=== PATIENT | male | born 1950 | race Caucasian/White ===

== ENCOUNTER → 2019-10-24 | Outpatient (REF) | payer MEDICARE, BC, OTHER ==
[~2019-10-24] MED LIST: ASPI81TA86 PO; GABA-845 PO; LOSA50TA88 PO; MULTCAP PO; SIMV20TA22 PO
[2019-10-24 19:20] LABS: APPEARANCE, URINE HAZY (CLEAR); BACTERIA, URINE AUTO NEGATIVE (NEGATIVE); BILIRUBIN, URINE AUTO NEGATIVE (NEGATIVE); BLOOD, URINE BLOOD NEGATIVE (NEGATIVE); COLOR, URINE AMBER (YELLOW); GLUCOSE, URINE (UA) AUTO NEGATIVE (NEGATIVE); KETONE, URINE AUTO TRACE mg/dL (NEGATIVE); LEUKOCYTE ESTERASE, URINE AUTO NEGATIVE (NEGATIVE); MUCUS, URINE MODERATE (NEGATIVE); NITRITE, URINE AUTO NEGATIVE (NEGATIVE); PROTEIN, URINE AUTO NEGATIVE (NEGATIVE); RBC, URINE AUTO 3 /HPF (0-3); SPECIFIC GRAVITY URINE AUTO 1.026 (1.002-1.035); SQUAMOUS EPITHELIAL CELL UR AU 0 /HPF (0-6); UROBILINOGEN, URINE AUTO 0.2 mg/dL (0.0-2.0); WBC, URINE AUTO 4 /HPF (0-3)
== END ==
LOC: M SMT 16:49
PROVIDERS: ATTEND Nurse Practitioner Family
DX: N15.9 Renal tubulo-interstitial disease, unspecified (principal)
CPT/HCPCS: 81001; 87086; G0463

== ENCOUNTER 2019-11-10 07:45 | Day surgery (SDC) | payer MEDICARE, BC, OTHER ==
[~2019-11-10] VITALS: Ht 162.6 cm; Wt 106.6 kg
[2019-11-10] MEDS ORDERED: ceFAZolin 2 GM/D5W 50 ML IV BAG (J0690 PER 500MG) As Ordered ONE (08:01)
[2019-11-10] MEDS ORDERED: ceFAZolin 2 GM/D5W 50 ML IV BAG (J0690 PER 500MG) ONE (08:01)
[2019-11-10] MEDS ORDERED: LIDOCAINE 2% 100MG/5ML SDV (FOR ANES.) As Ordered ONE (08:57)
[2019-11-10] MEDS ORDERED: propofoL 200 MG/20 ML VIAL As Ordered ONE (08:58)
[2019-11-10] MEDS ORDERED: PERCOCET 5MG/325MG TAB As Ordered ONE (09:49)
[2019-11-10] MEDS ORDERED: PERCOCET 5MG/325MG TAB ONE (09:49)
--- NOTE | 2020-01-19 12:37 | RO ---
Date of Operation: 11/10/2019 PREOPERATIVE DIAGNOSIS: Right kidney stones. POSTOPERATIVE DIAGNOSIS: Right kidney stones. PROCEDURE: Right extracorporal shockwave lithotripsy. SURGEON: Axel Courtney MD. PRIVACY COMPLIANCE MANAGER: None. ANESTHESIA: MAC. OPERATIVE INDICATIONS: This is a 69-year-old male found to have right-sided nonobstructing kidney stones measuring up to 6 mm in size. He was brought to the operating room today for treatment. DESCRIPTION OF PROCEDURE: The patient was brought to the operating room and MAC anesthesia was administered. Prophylactic antibiotics were infused. Fluoroscopy was utilized to monitor. The patient was then placed in the supine position for a right-sided extracorporal shockwave lithotripsy. Fluoroscopy was utilized to monitor stone position and fragmentation throughout the procedure. Two stones were seen in the lower pole of the kidney with one measuring around 6 mm and the other one around 3-4 mm. Shockwaves were then delivered to these kidney stones ungated. There were no arrhythmias. The stones did appear to fragment well. After a total of 2500 shocks, the procedure was completed. The patient was then awakened from anesthesia and transferred to the recovery room in stable condition. ESTIMATED BLOOD LOSS: 5 mL. COMPLICATIONS: None. SPECIMENS: None. PLAN: The patient will follow-up in the urology clinic in a few weeks. We will get a KUB prior to assess for residual stone burden. SADIQ
== END 2019-11-10 10:25 | disposition home or self-care (01) ==
LOC: M SDC 07:45
PROVIDERS: ATTEND Urology
DX: N20.0 Calculus of kidney (principal); I10 Essential (primary) hypertension; E78.5 Hyperlipidemia, unspecified; Z87.891 Personal history of nicotine dependence; Z79.82 Long term (current) use of aspirin; Z79.899 Other long term (current) drug therapy
CPT/HCPCS: 50590; J0690

== ENCOUNTER → 2019-12-01 | Outpatient (REF) | payer MEDICARE, BC, OTHER ==
[2019-12-13 19:07] LABS: Ca Ox Monohydrate 98 % (.); Size 2x4 mm (.)
== END ==
LOC: M LAB REF 10:06
PROVIDERS: ATTEND Nurse Practitioner Family
DX: N20.0 Calculus of kidney (principal)
CPT/HCPCS: 82365; G0463